=== PATIENT | female | born 2000 | race Two or more races ===

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

== ENCOUNTER 2020-01-02 04:27 | Emergency (ER) | payer MEDICAID ==
[~2020-01-02] VITALS: Ht 152.4 cm; Wt 85.1 kg
[~2020-01-02 04:27] MED LIST changes: +DOCU-131 PO; +IBUP-1223 PO; +OXYC-302 PO
[2020-01-02] MEDS ORDERED: SODIUM CHLORIDE 0.9% 1,000ML IVBOLUS ONE (05:30)
[2020-01-02] MEDS ORDERED: ACETAMINOPHEN 500 MG TABLET PO ONE (05:30)
[2020-01-02] MEDS ORDERED: SODIUM CHLORIDE FLUSH 10ML SYR IVF ONE (05:30)
[2020-01-02] MEDS ORDERED: ACETAMINOPHEN 500 MG TABLET ONE (05:35)
--- NOTE | 2020-01-02 05:48 | NUR ---
XRAY AT BEDSIDE
--- NOTE | 2020-01-02 05:49 | NUR ---
PIV STARTED FLUIDS RUNNING CULTURES OBTAINED AND SENT TO LAB. PT TOLERATED WELL. PT MEDICATED PER AUG FOR FEVER. 5 RIGHTS VERIFIED
[2020-01-02 06:03] LABS: MEAN CORPUSCULAR HEMOGLOBIN 28.8 pg (27.0-34.8); MEAN CORPUSCULAR HGB CONC 32.8 g/dL (32.4-35.8); MEAN CORPUSCULAR VOLUME 87.9 fL (80-100); MEAN PLATELET VOLUME 6.9 fL (7.4-10.4); PLATELET COUNT 307 x10^3/uL (130-400); RED BLOOD COUNT 3.79 x10^6/uL (3.82-5.3); RED CELL DISTRIBUTION WIDTH 15.3 % (9.6-15.2)
[2020-01-02 06:09] LABS: ALANINE AMINOTRANSFERASE 63 U/L (12-78); ALBUMIN 2.7 g/dL (3.4-5.0); ANION GAP 7 mmol/L (5-15); CALCIUM 8.3 mg/dL (8.5-10.1); CHLORIDE 111 mmol/L (98-107); CREATININE 0.58 mg/dL (0.55-1.02)
[2020-01-02 06:11] LABS: ALKALINE PHOSPHATASE 169 U/L (45-117); BILIRUBIN,TOTAL 0.3 mg/dL (0.2-1.0); TOTAL PROTEIN 6.7 g/dL (6.4-8.2)
[2020-01-02 06:18] LABS: BASOPHILS % (AUTO) 0 % (0-1); EOSINOPHILS # (AUTO) 0.09 x10^3/uL (0-0.8); EOSINOPHILS % (AUTO) 1 % (1-7); LYMPHOCYTES # (AUTO) 0.74 x10^3/uL (1-6.1); LYMPHOCYTES % (AUTO) 8 % (22-44); MD SCAN; MONOCYTES # (AUTO) 0.47 x10^3/uL (0-1.4); MONOCYTES % (AUTO) 5 % (2-9); NEUTROPHILS # (AUTO) 7.72 x10^3/uL (1.8-8.0); NEUTROPHILS % (AUTO) 86 % (42-75)
[2020-01-02] MEDS ORDERED: OMNIPAQUE 350 MG/ML, 100ML BOTTLE ONE (06:56)
--- NOTE | 2020-01-02 07:23 | NUR ---
PT BACK FROM CT AT THIS TIME, RESTING ON YAMILETH PATTERSON NOTED, NO NEEDS EXPRESSED AT THIS TIME
--- NOTE | 2020-01-02 07:33 | NUR ---
ERMD UPDATED ON TEMP AND HR STILL 114 POST BOLUS AND TYLENOL ADMIN
[2020-01-02 08:07] LABS: MICROSCOPIC NOT IND
[2020-01-02] MEDS ORDERED: IBUPROFEN 200 MG TABLET ONE (09:50)
--- NOTE | 2020-01-02 09:51 | NUR ---
PT TEMP NOW 102.9, ERMD UPDATED ORDERS RECIEVED FOR IBU. PT NOW REQUIRING SUPP O2 4L TO MAINTAIN SATS >94%. PLAN TO ADMIT PT PER ERMD. WILL CONTINUE TO [place]
[2020-01-02] MEDS ORDERED: IBUPROFEN 200 MG TABLET PO ONE (10:00)
--- NOTE | 2020-01-02 10:53 | NUR ---
PT TRIAL WITH NO O2 WHILE SITTING ON GURNEY, SATING 91-93% FOR A FEW MINUTES. PT NOW REQUESTING TO USE BEDSIDE COMMODE. PT THEN DE-SATS TO 79%, LANDY UPDATED HE IS IN TO SPEAK TO PT, PT INITIALLY REFUSING ADMIT. LANDY DISCUSSED PT SHOULD BE ADMITTED AND MAY IF SHE DECLINES. PT PLACED BACK ON 3L AT THIS TIME, NOW SATING 95%. PT TO CALL HER S/O TO DISCUSS THEN SHE WILL INFORM THIS RN OF HER DECISION
[2020-01-02 10:59] LABS: TROPONIN I < 0.015 ng/mL (0.000-0.045)
--- NOTE | 2020-01-02 11:13 | NUR ---
SPOKE WITH PTS S/O PER HER REQUEST AND UPDATED ON SITUATION. HE IS TO CALL TO SPEAK TO THE PT IN HOPES TO CALM HER. PT BOYFRIEND [phone]
[2020-01-02 11:54] LABS: D-DIMER (DIC) 3.08 ug/mlFEU (0.00-0.52); PROTIME 9.1 Seconds (9.6-11.5)
[2020-01-02] MEDS ORDERED: CEFTRIAXONE PMX 1GM/50ML 50 ML ONE (12:53)
[2020-01-02] MEDS ORDERED: MELATONIN 5 MG TABLET PO PRN (13:00)
[2020-01-02] MEDS ORDERED: ACETAMINOPHEN 325 MG TABLET PO PRN (13:00)
[2020-01-02] MEDS ORDERED: ENALAPRILAT 1.25 MG/ML, 2ML IVPush PRN (13:00)
[2020-01-02] MEDS ORDERED: IBUPROFEN 600 MG TABLET PO PRN (13:00)
[2020-01-02] MEDS ORDERED: ENOXAPARIN 40 MG/0.4 ML SQ SCH (13:00)
[2020-01-02] MEDS ORDERED: ONDANSETRON ODT 4 MG PO PRN (13:00)
[2020-01-02] MEDS ORDERED: ONDANSETRON 2MG/ML, 2ML IVPush PRN (13:00)
[2020-01-02] MEDS ORDERED: CEFTRIAXONE PMX 1GM/50ML 50 ML IV ONE (13:00)
[2020-01-02] MEDS ORDERED: KETOROLAC 30 MG/1 ML IV PRN (13:00)
--- NOTE | 2020-01-02 14:00 | NUR ---
PT TO HOSPITAL BED AT THIS TIME PER TASK RN
--- NOTE | 2020-01-02 15:22 | NUR ---
DISCUSSED DIC PANEL, WITH ADMITTING MD, WILL HOLD LOVENOX AT THIS TIME.
--- NOTE | 2020-01-02 17:25 | NUR ---
THROUGHPUT: PT AUNT UPDATED ON PT STATUS PER PT OK.
--- NOTE | 2020-01-02 17:37 | NUR ---
DINNER TRAY ORDERED, PT CURRENTLY RESTING ON HOSPITAL BED AT THIS TIME, VSS.
--- NOTE | 2020-01-02 18:32 | NUR ---
PT SLEEPING AT THIS TIME, WILL OFFER MEAL TRAY AT LATER TIME.
--- NOTE | 2020-01-02 19:00 | NUR ---
Report from Radha HARO.
[2020-01-02] MEDS ORDERED: FAMOTIDINE 20 MG TABLET ONE (20:01)
--- NOTE | 2020-01-02 20:27 | NUR ---
PT RESTING TALKING ON PHONE WITH FAMILY. VSS. PLACED CALL LIGHT WITHIN REACH.
[2020-01-02] MEDS ORDERED: FAMOTIDINE 20 MG TABLET PO SCH (21:00)
[2020-01-02] MEDS ORDERED: IBUPROFEN 600 MG TABLET ONE (22:41)
[2020-01-02] MEDS ORDERED: ACETAMINOPHEN 325 MG TABLET ONE (22:41)
--- NOTE | 2020-01-02 22:46 | NUR ---
MEDICATED PER AUG FOR FEVER, PROVIDED PT WITH MANUAL BREAST PUMP. ENCOURAGED PT TO CALL FOR ASSISTANCE. PLACED CALL LIGHT WITHIN REACH.
--- NOTE | 2020-01-02 23:50 | NUR ---
PT ATTEMPTED TO USE MANUAL BREAST PUMP UNSUCCESSFULLY. RN ASSISTED PT WITH BREAST PUMP, BREAST DRAINING INTO PUMP. ENCOURAGED PT TO CALL FOR ASSISTANCE.
--- NOTE | 2020-01-03 00:50 | NUR ---
PT USING HOSPITAL BREAST PUMP.
[2020-01-03 05:39] LABS: ANION GAP 7 mmol/L (5-15); CALCIUM 7.7 mg/dL (8.5-10.1); CHLORIDE 112 mmol/L (98-107); CREATININE 0.49 mg/dL (0.55-1.02)
[2020-01-03 05:45] LABS: BASOPHILS # (AUTO) 0.01 x10^3/uL (0-0.3); BASOPHILS % (AUTO) 0 % (0-1); EOSINOPHILS % (AUTO) 0 % (1-7); LYMPHOCYTES # (AUTO) 0.85 x10^3/uL (1-6.1); LYMPHOCYTES % (AUTO) 12 % (22-44); MD NO; MEAN CORPUSCULAR HEMOGLOBIN 28.5 pg (27.0-34.8); MEAN CORPUSCULAR HGB CONC 32.4 g/dL (32.4-35.8); MEAN CORPUSCULAR VOLUME 87.9 fL (80-100); MEAN PLATELET VOLUME 6.7 fL (7.4-10.4); MONOCYTES # (AUTO) 0.52 x10^3/uL (0-1.4); MONOCYTES % (AUTO) 8 % (2-9); NEUTROPHILS # (AUTO) 5.47 x10^3/uL (1.8-8.0); NEUTROPHILS % (AUTO) 80 % (42-75); PLATELET COUNT 249 x10^3/uL (130-400); RED BLOOD COUNT 3.54 x10^6/uL (3.82-5.3); RED CELL DISTRIBUTION WIDTH 15.4 % (9.6-15.2)
--- NOTE | 2020-01-03 05:55 | NUR ---
PT PUMPING. VSS.
[2020-01-03] MEDS ORDERED: CEPH-368 PO ×2 (06:26)
--- NOTE | 2020-01-03 06:57 | NUR ---
REPORT GIVEN TO JL HARO.
[2020-01-03 07:42] VITALS: BP 134/74
[2020-01-03] MEDS ORDERED: CEFTRIAXONE 1,000 MG IM SCH (08:00)
== END 2020-01-03 08:08 | disposition home or self-care (01) ==
LOC: ED 07:17 → SUATTDRO 12:50 → UNDOADMIN 13:22 → EDIP 13:22
PROVIDERS: ATTEND Hospitalist
DX: J18.9 Pneumonia, unspecified organism (principal); Z20.828 Contact with and (suspected) exposure to other viral communicable diseases; R09.02 Hypoxemia; N64.4 Mastodynia; I49.3 Ventricular premature depolarization; R00.0 Tachycardia, unspecified; I44.4 Left anterior fascicular block
CPT/HCPCS: 36415; 71045; 71275; 80048; 80053; 81003; 82728; 83605; 84145; 84484; 85025; 85049; 85379; 85384; 85610; 85730; 86140; 87040; 87635; 93005; 99285; J0696; J7030; Q9967

== ENCOUNTER 2020-11-01 19:08 | Outpatient (CLI) | payer MEDICAID, OTHER ==
[~2020-11-01] VITALS: Ht 152.4 cm; Wt 66.3 kg
[~2020-11-01 19:08] MED LIST changes: +CEPH-368 PO; -OXYC-302 PO; +OXYC1TAB14 PO
[2020-11-01] MEDS ORDERED: ONDANSETRON ODT 4 MG ONE (19:24)
[2020-11-01] MEDS ORDERED: ONDANSETRON 4 MG TABLET PO PRN (19:30)
[2020-11-01 19:44] LABS: MICROSCOPIC INDICATED
== END 2020-11-01 20:28 | disposition home or self-care (01) ==
LOC: LDOP 19:08
PROVIDERS: ATTEND Obstetrics & Gynecology
DX: O98.512 Other viral diseases complicating pregnancy, second trimester (principal); O26.892 Other specified pregnancy related conditions, second trimester; M54.5 Low back pain; R25.2 Cramp and spasm; Z3A.22 22 weeks gestation of pregnancy
CPT/HCPCS: 81001; 87086; 87635; 99211; Q0162; G0463

== ENCOUNTER → 2020-12-27 | Outpatient (CLI) | payer MEDICAID | END | disposition home or self-care (01) | LOC: LDOP 15:18 | PROVIDERS: ATTEND Obstetrics & Gynecology | DX: O36.8130 Decreased fetal movements, third trimester, not applicable or unspecified (principal); Z3A.30 30 weeks gestation of pregnancy | CPT/HCPCS: 59025; 76819 ==

== ENCOUNTER 2021-02-19 15:51 | Emergency (ER) | payer MEDICAID ==
[~2021-02-19] VITALS: Ht 152.4 cm; Wt 82.1 kg
[~2021-02-19 15:51] MED LIST changes: +OXYC1TAB12 PO; -OXYC1TAB14 PO
--- NOTE | 2021-02-19 17:01 | NUR ---
customer service attendant: Pt ambulatory to room from lobby at this time.
--- NOTE | 2021-02-19 17:21 | NUR ---
ASSUMED CARE OF PATIENT. PATIENT REPORTS COUGH/CONGESTION/BODY ACHES X2 DAYS. VS STABLE. L&D IN ROOM. HEART TONES OKAY. PULSE OX ON. LAND LEASING INFORMATION CLERK ON. SINUS TACH NOTED. CALL LIGHT IN PLACE. WILL CONTINUE TO MONITOR.
[2021-02-19] MEDS ORDERED: PRENATAL (17:25)
[2021-02-19] MEDS ORDERED: LACTATED RINGERS 1,000 ML IVBOLUS ONE (18:00)
--- NOTE | 2021-02-19 18:05 | NUR ---
PT RESTING IN ROOM. VS STABLE. CALL LIGHT IN PLACE. MARKETING EFFECTIVENESS MANAGER ON. SINUS TACH NOTED. WILL CONTINUE TO MONITOR.
[2021-02-19 18:06] LABS: BASOPHILS % (AUTO) 0 % (0-1); EOSINOPHILS % (AUTO) 0 % (1-7); LYMPHOCYTES % (AUTO) 14 % (22-44); MEAN CORPUSCULAR HEMOGLOBIN 24.1 pg (27.0-34.8); MEAN CORPUSCULAR HGB CONC 32.7 g/dL (32.4-35.8); MEAN PLATELET VOLUME 6.8 fL (7.4-10.4); MONOCYTES % (AUTO) 10 % (2-9); NEUTROPHILS % (AUTO) 75 % (42-75); PLATELET COUNT 282 x10^3/uL (130-400); RED CELL DISTRIBUTION WIDTH 16.4 % (9.6-15.2)
[2021-02-19 18:20] LABS: ANION GAP 5 mmol/L (5-15); CALCIUM 8.2 mg/dL (8.5-10.1); CHLORIDE 109 mmol/L (98-107); CREATININE 0.39 mg/dL (0.55-1.02)
[2021-02-19 18:38] VITALS: BP 122/73
--- NOTE | 2021-02-19 18:39 | NUR ---
PT REPORTS SHE IS HAVING CONTRACTIONS. DR SANDOVAL TO BEDSIDE. L&D CALLED. NO ACUTE DISTRESS. PT TRANSFERRED TO L&D.
[2021-02-19 19:00] LABS: <PLATELET ESTIMATE> ADEQUATE; <PLT MORPHOLOGY> NORMAL PLT MORPH; ANISOCYTOSIS 1+; POLYCHROMASIA 1+
== END 2021-02-19 17:05 ==
LOC: ED 17:00
DX: B34.9 Viral infection, unspecified (principal); Z20.822 Contact with and (suspected) exposure to COVID-19
CPT/HCPCS: 36415; 71045; 80048; 85025; 87635; 96360; 99284; J7120; U0003; U0005

== ENCOUNTER 2021-02-19 18:53 | Outpatient (CLI) | payer MEDICAID ==
[~2021-02-19] VITALS: Ht 160 cm; Wt 79.0 kg
[~2021-02-19 18:53] MED LIST changes: +PRENATAL
== END 2021-02-19 20:05 | disposition home or self-care (01) ==
LOC: LDOP 18:53
PROVIDERS: ATTEND Obstetrics & Gynecology
DX: O26.893 Other specified pregnancy related conditions, third trimester (principal); R10.9 Unspecified abdominal pain; Z3A.33 33 weeks gestation of pregnancy
CPT/HCPCS: 59025

== ENCOUNTER 2021-03-06 08:53 | Inpatient (IN) | payer MEDICAID ==
[~2021-03-06] VITALS: Ht 152.4 cm; Wt 83.1 kg
[2021-03-06] MEDS ORDERED: MISOPROSTOL 200 MCG TABLET ONE (12:00)
[2021-03-06] MEDS ORDERED: NEWBORN KIT ONE (12:00)
[2021-03-06] MEDS ORDERED: LIDOCAINE 1%, 20ML ONE (12:00)
[2021-03-06] MEDS ORDERED: OXYTOCIN 30U/ 0.9% NaCL 500ML 500 ML ONE (12:01)
[2021-03-06] MEDS ORDERED: ONDANSETRON 2MG/ML, 2ML IVPush PRN (12:30)
[2021-03-06] MEDS ORDERED: TERBUTALINE 1 MG/ML, 1ML IVPush PRN (12:30)
[2021-03-06] MEDS ORDERED: D5%-LACTATED RINGERS 1,000 ML IV SCH (12:30)
[2021-03-06] MEDS ORDERED: CALCIUM CARBONATE 500 MG TAB.CHEW PO PRN (12:30)
[2021-03-06] MEDS ORDERED: TERBUTALINE 1 MG/ML, 1ML SQ PRN (12:30)
[2021-03-06] MEDS ORDERED: FENTANYL PF 100 MCG/2ML IVPush PRN (12:30)
[2021-03-06] MEDS ORDERED: OXYTOCIN 30U/ 0.9% NaCL 500ML 500 ML IV ONE (12:30)
[2021-03-06] MEDS ORDERED: FENTANYL PF 100 MCG/2ML IV PRN (12:30)
[2021-03-06] MEDS ORDERED: OXYTOCIN 30U/ 0.9% NaCL 500ML 500 ML IV PRN (12:30)
[2021-03-06] MEDS ORDERED: LACTATED RINGERS 1,000 ML IV SCH (12:30)
[2021-03-06 12:41] LABS: BASOPHILS % (AUTO) 0 % (0-1); EOSINOPHILS % (AUTO) 0 % (1-7); LYMPHOCYTES % (AUTO) 22 % (22-44); MEAN CORPUSCULAR HEMOGLOBIN 24.3 pg (27.0-34.8); MEAN CORPUSCULAR HGB CONC 33.3 g/dL (32.4-35.8); MEAN PLATELET VOLUME 7.2 fL (7.4-10.4); MONOCYTES % (AUTO) 8 % (2-9); NEUTROPHILS % (AUTO) 70 % (42-75); PLATELET COUNT 197 x10^3/uL (130-400); RED BLOOD COUNT 4.41 x10^6/uL (3.82-5.3); RED CELL DISTRIBUTION WIDTH 17.1 % (9.6-15.2)
[2021-03-06] MEDS ORDERED: PREN1TAB79 PO (13:08)
[2021-03-06] MEDS: LACTATED RINGERS 1,000 ML IV SCH ×2 (13:55→22:30)
[2021-03-06] MEDS ORDERED: BUPIVACAINE 0.25% ONE (14:02)
[2021-03-06] MEDS ORDERED: FENTANYL/BUPIV./NS/PF 250 ML EPIDCONT ONE (14:02)
[2021-03-06] MEDS ORDERED: EPHEDRINE 50 MG/ML, 1ML IVPush PRN (14:30)
[2021-03-06] MEDS ORDERED: LACTATED RINGERS 1,000 ML IVBOLUS PRN (14:30)
[2021-03-06] MEDS ORDERED: FENTANYL/BUPIV./NS/PF 250 ML EPIDCONT SCH (14:30)
[2021-03-06] MEDS ORDERED: ACETAMINOPHEN 325 MG TABLET ONE (21:12)
[2021-03-06] MEDS: ACETAMINOPHEN 325 MG TABLET PO PRN (21:17)
[2021-03-06] MEDS ORDERED: AMPICILLIN 2 GM in SODIUM CHLORIDE 0.9% 100 ML IV SCH (21:30)
[2021-03-07] MEDS ORDERED: OXYcodone/APAP 5/325MG TABLET PO PRN (01:00)
[2021-03-07] MEDS ORDERED: MISOPROSTOL 200 MCG TABLET PR PRN (01:00)
[2021-03-07] MEDS ORDERED: ONDANSETRON 2MG/ML, 2ML IV PRN (01:00)
[2021-03-07] MEDS ORDERED: OXYcodone IR 5MG TABLET PO PRN (01:00)
[2021-03-07] MEDS ORDERED: OXYTOCIN 30U/ 0.9% NaCL 500ML 500 ML IV SCH (01:00)
[2021-03-07] MEDS ORDERED: ACETAMINOPHEN 325 MG TABLET PO PRN (01:00)
[2021-03-07] MEDS ORDERED: SIMETHICONE 80 MG CHEW TAB PO PRN (01:00)
[2021-03-07 02:25] VITALS: BP 116/78
[2021-03-07] MEDS ORDERED: GENTAMICIN 90 MG in SODIUM CHLORIDE 0.9% 100 ML IV SCH (03:00)
[2021-03-07] MEDS ORDERED: GENTAMICIN PER PHARMACY MC PRN (03:00)
[2021-03-07] MEDS ORDERED: GENTAMICIN 120 MG in SODIUM CHLORIDE 0.9% 100 ML IV ONE (03:00)
[2021-03-07] MEDS ORDERED: PHARMACOKINETIC MONITORING MC PRN (03:00)
[2021-03-07] MEDS ORDERED: PHARMACOKINETIC CONSULTATION MC ONE (03:00)
[2021-03-07] MEDS: CLINDAMYCIN PMX 900MG/50ML 50 ML IV SCH ×3 (03:19→19:34)
[2021-03-07] MEDS: ACETAMINOPHEN 325 MG TABLET PO PRN (03:19)
[2021-03-07 06:30] VITALS: BP 118/79
[2021-03-07] MEDS: LACTATED RINGERS 1,000 ML IV SCH (06:30)
[2021-03-07 08:00] VITALS: BP 96/63
[2021-03-07] MEDS: PRENATAL VIT/IRON/FA 1 EACH TABLET PO SCH (08:15)
[2021-03-07] MEDS: DOCUSATE 100 MG CAPSULE PO PRN (08:15)
[2021-03-07] MEDS: IBUPROFEN 600 MG TABLET PO PRN (10:24)
[2021-03-07 12:45] VITALS: BP 103/73
[2021-03-07] MEDS: GENTAMICIN 120 MG in SODIUM CHLORIDE 0.9% 50 ML IV SCH ×2 (13:30→21:36)
[2021-03-07 16:40] VITALS: BP 104/74
[2021-03-07 20:00] VITALS: BP 107/62
[2021-03-07 23:34] LABS: BASOPHILS % (AUTO) 0 % (0-1); EOSINOPHILS % (AUTO) 0 % (1-7); LYMPHOCYTES % (AUTO) 28 % (22-44); MEAN CORPUSCULAR HEMOGLOBIN 23.9 pg (27.0-34.8); MEAN CORPUSCULAR HGB CONC 32.8 g/dL (32.4-35.8); MEAN PLATELET VOLUME 7.2 fL (7.4-10.4); MONOCYTES % (AUTO) 8 % (2-9); NEUTROPHILS % (AUTO) 64 % (42-75); PLATELET COUNT 177 x10^3/uL (130-400); RED BLOOD COUNT 3.84 x10^6/uL (3.82-5.3); RED CELL DISTRIBUTION WIDTH 17.1 % (9.6-15.2)
[2021-03-08] VITALS: BP 113/64
[2021-03-08] MEDS: IBUPROFEN 600 MG TABLET PO PRN ×4 (01:39→22:10)
[2021-03-08] MEDS: CLINDAMYCIN PMX 900MG/50ML 50 ML IV SCH (03:46)
[2021-03-08 04:00] VITALS: BP 112/63
[2021-03-08] MEDS: GENTAMICIN 120 MG in SODIUM CHLORIDE 0.9% 50 ML IV SCH (04:50)
[2021-03-08] MEDS: PRENATAL VIT/IRON/FA 1 EACH TABLET PO SCH (07:38)
[2021-03-08] MEDS: DOCUSATE 100 MG CAPSULE PO PRN ×2 (07:38→22:10)
[2021-03-09] MEDS: IBUPROFEN 600 MG TABLET PO PRN (04:34)
[2021-03-09 08:35] VITALS: BP 103/68
[2021-03-09] MEDS: DOCUSATE 100 MG CAPSULE PO PRN (09:00)
== END 2021-03-09 16:20 | disposition home or self-care (01) | DRG 805 ==
LOC: LDOP 08:53 → LDIP 12:15 → 2NW 03-07 02:08
PROVIDERS: ADMIT Obstetrics & Gynecology; ATTEND Obstetrics & Gynecology
PROC: 10E0XZZ Delivery of Products of Conception, External Approach (ICD-10-PCS; principal; 2021-03-07)
PROC: 3E0R3BZ Introduction of Anesthetic Agent into Spinal Canal, Percutaneous Approach (ICD-10-PCS; 2021-03-07)
PROC: 00HU33Z Insertion of Infusion Device into Spinal Canal, Percutaneous Approach (ICD-10-PCS; 2021-03-07)
DX: O98.52 Other viral diseases complicating childbirth (principal); U07.1 COVID-19; Z37.0 Single live birth; Z3A.38 38 weeks gestation of pregnancy
CPT/HCPCS: 36415; 85025; 86592; 86850; 86900; 87635; G0378; J0290; J2405; J1580; J3010; J7120